=== PATIENT | male | born 1995 | race Caucasian/White ===

== ENCOUNTER → 2023-05-07 15:10 | Outpatient (BNVA) | payer MEDICARE, MEDICAID, SELFPAY | PROVIDERS: PCP Family Medicine; Visit Provider Podiatrist Foot & Ankle Surgery | DX: L60.0 Ingrowing nail (principal) | CPT/HCPCS: 11750; 99203 ==

== ENCOUNTER → 2023-05-21 10:14 | Outpatient (BNVA) | payer MEDICARE, MEDICAID, SELFPAY | PROVIDERS: PCP Family Medicine; Visit Provider Podiatrist Foot & Ankle Surgery | DX: L60.0 Ingrowing nail (principal) | CPT/HCPCS: 99213 ==

== ENCOUNTER 2023-10-27 09:45 | Emergency (ER) | payer MEDICARE, MEDICAID, SELFPAY ==
--- NOTE | 2023-10-27 09:48 | W.ED.GENADLT ---
HPI - General Adult General: Chief complaint: Allergic Reaction Stated complaint: started taking meds, felt foggy,reaction to meds Time Seen by Provider: 10/27/23 09:47 Source: patient Mode of arrival: ambulatory History of Present Illness: 28-year-old male presents emergency room complaining of facial tics. 4 days ago he started Abilify 5 mg at at bedtime he was having a lot of [place] hallucinations he was seen at crisis stabilization at that time. He is also seen at [facility] at times. He been on Prozac prior to that and continues to take that. He has not had any other symptoms he is not having difficulty with auditory or visual hallucinations at this time. He has no suicidal or homicidal ideation. He also states he feels somewhat foggy and mildly sedate as well Onset (ago): hour(s) Associated symptoms: Deny chest pain, confusion, cough, diaphoresis, decreased appetite, dyspnea, fevers/chills, headache(s), malaise, nausea, rash, palpitations, seizures, short of breath, syncope, vomiting or weakness Review of Systems Const: Denies: fever(s), chills, malaise or diaphoresis Card: Denies: chest pain, palpitations or syncope Resp: Denies: dyspnea GI: Denies: abdominal pain, nausea or vomiting : Denies: dysuria, urinary frequency or urinary urgency Musc: Denies: neck pain or back pain Skin/Breast: Denies: rash Neuro: Denies: headache(s) or confusion PFS ED PFSH: Medical History Psychiatric care Autism spectrum disorder Depression Anxiety Bipolar 2 disorder ADHD (attention deficit hyperactivity disorder) Surgical History History of hernia repair Family History Other Dementia Diabetes Hypertension Psychiatric illness Denies family history of CAD (coronary artery disease) Clotting disorder Hyperlipidemia Chronic kidney disease (CKD) Anesthesia complication Bleeding disorder Lung disease Cancer Stroke Social History Smoking and tobacco/nicotine status: current some day tobacco/nicotine user e-cigarettes E-Cigarette Details: vaporizer device Alcohol intake: never Substance/Drug Use: current Substance/Drug use frequency: few times a month Lives independently: Yes Marital status: Single Number of children: 0 Current occupational status: disabled Special sugar needs: No Agree to transfusion: Yes Physical Exam Const: GENERAL APPEARANCE: cooperative and comfortable ORIENTATION/CONSCIOUSNESS: Yes awake, Yes oriented to person, Yes oriented to place and Yes oriented to time HENMT: COMMON NORMALS: normocephalic, atraumatic and hearing grossly normal bilaterally HEAD & SCALP: normocephalic and atraumatic OTHER: Tardive dyskinesia like symptoms. Resp: COMMON NORMALS: normal respiratory effort, No retractions, No use of accessory muscles and clear to auscultation bilaterally AUSCULTATION: clear to auscultation bilaterally Cardio: COMMON NORMALS: regular rate, regular rhythm and No murmurs present (Cardio) RATE: regular rate RHYTHM: regular rhythm GI: COMMON NORMALS: Soft to palpation and No hepatosplenomegaly present AUSCULTATION: Yes normoactive bowel sounds PALPATION: Yes Soft to palpation, No Tenderness to palpation present (GI), No Guarding due to palpation present (GI) and Yes No hepatosplenomegaly present Extremity: COMMON NORMALS: normal to inspection, capillary refill normal, no clubbing, cyanosis or edema, no calf tenderness and no pedal edema Neuro: SENSORIUM/ORIENTATION: Yes oriented to person, Yes oriented to place and Yes oriented to time Skin: COMMON NORMALS: no rashes or lesions noted GENERAL SKIN EXAM: no rashes or lesions noted Course Vital Signs: Vital signs: Vital Signs Temperature 98.4 F 10/27/23 09:51 Pulse Rate 76 10/27/23 09:56 Respiratory Rate 18 10/27/23 09:56 Blood Pressure 145/78 10/27/23 09:56 Pulse Oximetry 99 10/27/23 09:56 Oxygen Delivery Me thod Room Air 10/27/23 09:56 MDM - General Adult Medical Decision Making Patient having side effects of Abilify. Will have him stop the Abilify given Cogentin here in the emergency room can use Benadryl 25 to 50 mg every 4-6 hours as needed. He has been seen by [facility] in the past he can follow-up with them this coming week or he can follow-up with crisis stabilization if he has significant worsening or recurrence of his hallucinations. Medical Records I reviewed the patient's medical records. No radiology studies performed this visit Discharge Plan Discharge Patient Disposition: Home Clinical Impression: Neuroleptic-induced tardive dyskinesia, Autism spectrum disorder Condition: Stable Prescriptions: Discontinued aripiprazole [Abilify] 10 mg Tablet 10 mg PO DAILY No Action Prozac 20 mg Capsule 20 mg PO DAILY Discharge Orders: Discharge ED (Routine); Ordered 10/27/23 Ordered By: Rupert Irizarry Referrals: Bala Alvarez MD [Primary Care Provider] - Discharge Diet: Usual diet Discharge Activity: Resume usual activity Patient Instructions: Opioid Safety, Pain Management Activity Restrictions/Additional Instructions: Thank you for choosing [facility] for your healthcare needs today. Please realize this is an emergency room and that we are providing you with a medical screening exam and this may not be complete and all inclusive of all the testing and or work up that you may need to determine your ailment or severity of your illness. It is very important that you follow up as instructed or that you return to the Emergency Department should you have concerns or if your condition changes or worsens in any way. You were seen today for side effects from the Abilify. Discussed with Dr. Richards who recommends that you stop the Abilify. You are given a dose of Cogentin here which can help with the side effects. You can use Benadryl 25 to 50 mg every 4-6 hours as needed at home as well. You should follow-up either at crisis stabilization if you have acute problems or contact [facility] for a follow-up appointment. Coding Level of Care Code ED Landscape Artist for Jose Villegas
[2023-10-27 09:51] VITALS: BP 145/78; PULSE 76; RESP 18; TEMP 36.9; O2SAT 99; BMI 24.1
[2023-10-27 09:56] VITALS: BP 145/78; PULSE 76; RESP 18; O2SAT 99
[2023-10-27] MEDS: benztropine 1 mg Tablet PO (10:08)
[2023-10-27 10:11] VITALS: PULSE 70; O2SAT 99
== END 2023-10-27 10:11 | disposition home or self-care (01) ==
PROVIDERS: Emergency Provider Family Medicine; PCP Family Medicine
DX: G24.01 Drug induced subacute dyskinesia (principal); T43.595A Adverse effect of other antipsychotics and neuroleptics, initial encounter; F84.0 Autistic disorder; Z72.0 Tobacco use
CPT/HCPCS: 99283

== ENCOUNTER → 2023-12-16 14:37 | Outpatient (BNVA) | payer MEDICARE, OTHER, SELFPAY | PROVIDERS: PCP Family Medicine; Visit Provider Psychiatry & Neurology Psychiatry | DX: F84.0 Autistic disorder (principal); F31.81 Bipolar II disorder; Z79.899 Other long term (current) drug therapy | CPT/HCPCS: 80061; 83036 ==